=== PATIENT | female | born 1945 | race Caucasian/White ===

== ENCOUNTER 2016-12-09 10:08 | Day surgery (SDC) | payer MEDICARE, OTHER ==
[2016-12-07 12:54] LABS: T PROTEIN (ELECT)(NOT OR 7.1 G/DL (6.0-8.5)
[2016-12-07 13:03] LABS: C-REACTIVE PROTEIN 13.2 MG/L (<8.0); FREE T4 1.62 NG/DL (0.76-1.46)
[2016-12-07 13:04] LABS: IMMUNOGLOBULIN A 695 MG/DL (70-420); IMMUNOGLOBULIN G 1420 MG/DL (673-1464); IMMUNOGLOBULIN M 103 MG/DL (30-270); ULTRASENSITIVE TSH 2.04 MCIU/ML (0.358-3.740)
[2016-12-07 13:06] LABS: INTACT PTH (ICMA) 57.7 PG/ML (10.0-65.0)
[2016-12-08 11:35] LABS: A/G 0.77 RATIO (0.9-2.10); ALB RELATIVE % 43.4 % (60.0-89.0); ALBUMIN (ELECTRO) 3.08 GM/DL (3.2-5.5); ALPHA 1 (ELECTRO) 0.34 GM/DL (0.1-0.4); ALPHA 1 RELAT % (NOT ORD) 4.8 % (1.0-4.0); ALPHA 2 (ELECTRO) 1.04 GM/DL (0.5-1.10); ALPHA 2 RELAT % 14.6 % (4.5-26.0); BETA GLOBULIN (SPE) 0.96 GM/DL (0.60-1.30); BETA RELATIVE % 13.5 % (9.0-22.0); GAMMA GLOBULIN (SPE) 1.68 G/DL (0.70-1.60); GAMMA RELAT % 23.7 % (6.0-22.0)
--- NOTE | ~2016-12-09 | OP ---
Record Of Operation [facility] [address] [place]. [address] NAME: PRAVEEN BONDS : 43 STATUS : [facility]#: [id number] AGE: 71 ADM/REG DATE : 12/09/16 MR#: [id number] REPORT SERV DATE: 12/12/16 DICTATED BY: DARWIN GOODMAN DATE: 12/09/16 REPORT STATUS : Draft TRANSCRIBED BY: MODMayda DATE: 12/09/16 DATE OF PROCEDURE: 12/09/2016 PROCEDURES: L4 kyphoplasty. DIAGNOSES: 1. Osteoporosis. 2. Osteoporotic compression fracture of L4. 3. Severe lumbalgia, recalcitrant to conservative management. ANESTHESIA: General. PREPROCEDURAL ANTIBIOTICS: 2 g of Ancef IV. INTERIM HISTORY: Noncontributory, except for the fact that she did have a low potassium on pre-testing at 2.8. I prescribed some potassium for her and her recheck level today was 3.8. COMPLICATIONS: None. ESTIMATED BLOOD LOSS: Less than 10 mL. CONSENT: Informed consent was given and signed informed consent and document was obtained. Full description of procedures provided including benefits as well as possible complications including increased pain, spinal cord injury, spinal nerve injury, dural puncture with spinal headache, bleeding, infection, chest pain, pneumothorax, further fractures, meningitis, diskitis, spinal hematoma, leakage of cement, need for further procedures, allergic reaction, and failure of the procedure to relieve pain, and complications from anesthesia including blood clots, stroke, coma, paralysis, and . OPERATIVE PROCEDURE: The patient brought to the operating room, placed on the exam table on chest rolls in a comfortable prone position. The operative field was prepped with Hibiclens, followed by ChloraPrep, and Ioban, and draped in sterile fashion. Local anesthesia both superficial and deep was provided by local infiltration of a total of approximately 13 mL of 50:50 mixture of 1% lidocaine and 0.5% Marcaine with epinephrine. Two C-arms were used throughout the procedure in biplanar fashion and radiographs were made. The x-rays were compared to the patient's previous MRI and x-rays, and this revealed that the L4 was the correct level and this matched with the patient's fluoroscopy. Attention was focused on the L4 level. Using a 15 blade scalpel, a small skin rent was made just lateral to the right pedicle under AP view. The size 2 (10-gauge) Express trocar was then mounted through the right pedicle just past the posterior margin of the vertebral body using multiple radiographic views under AP and lateral projections. The Kyphon biopsy device was then cored under continuous live fluoroscopy until reaching the junction of the anterior 1/3rd and posterior 2/3rd of the vertebral body under lateral projection. The biopsy device was near the midline on the AP view. The same procedure was then repeated on the left side. Record Of Operation [facility] [address] [facility]. [address] NAME: PRAVEEN BONDS : 43 STATUS : [facility] PAT#: [id number] AGE: 71 ADM/REG DATE : 12/09/16 MR#: [id number] REPORT SERV DATE: 12/12/16 DICTATED BY: DARWIN GOODMAN DATE: 12/09/16 REPORT STATUS : Draft TRANSCRIBED BY: MODMayda DATE: 12/09/16 Two Kyphon balloon devices were then placed through the introducers and inflatable bone tamps were filled with contrast to a pressure of approximately 390 psi and radiographs revealed only a small amount of bone cavity formation on AP and lateral projections. The balloon tamps were then deflated and removed and a total of 4 mL of polymethylmethacrylate(PMMA) was pushed through the introducers after being mixed and given time to harden. The patient tolerated this well and radiographs revealed excellent intraosseous vertebral spread at L4 level without any evidence of extravasation except for a small amount of cement herniation through the superior endplate. There was excellent interdigitation. All needles, introducers, and other percutaneous equipment were removed. The skin nicks were then cleansed and dressed. The patient tolerated the procedure well and there were no complications. She was taken to the recovery area in good condition, and will be provided with postprocedural instructions. She will also be provided with contact information and instructed to call regarding any concerning symptoms or questions. IMPRESSION: Successful kyphoplasty of L4 level with details as noted above. LSR/ESTUARDOL Darwin Goodman M.D. / [id number] CC: Cesia Jc D.O.
[~2016-12-09 10:08] MED LIST: *UNABLE1; ARICEPT10 PO; ASAB PO; CURCUMIN PO; CYMBALTA60 PO; DEPLIN PO; FISH OIL1200 MG PO; GLUCPH PO; IMDUR30 PO; LEVOTHYROXIN100 MCG PO; LEVOTHYROXIN137 MCG PO; LOP50 PO; METADATE CD10 MG PO; METAMUCIL CAN7 OZ PO; NEUR600 PO; NORCO1 TA1 PO; RANEXA1000 MG PO; REM15 PO; REMERON30 MG; REMERON30 MG PO; RENEXA PO; REQUIP25 PO; VITAMIN D400 UNI1 PO; ZOCOR10 PO; ZOL100 PO; [UNRECOGNIZED DRUG - CODE] PO; [UNRECOGNIZED DRUG - OTHER]
[2016-12-20] MEDS ORDERED: WELCHOL 625 MG625 MG PO (18:53)
[2016-12-20] MEDS ORDERED: ZOCOR10 PO (18:54)
[2016-12-20] MEDS ORDERED: LOP50 PO (18:54)
[2016-12-20] MEDS ORDERED: IMDUR30 PO (18:54)
[2016-12-20] MEDS ORDERED: ZOFRAN8 PO (18:54)
[2016-12-20] MEDS ORDERED: FLORASTOR250 MG PO (18:55)
[2016-12-20] MEDS ORDERED: RANEXA1000 MG PO (18:55)
[2016-12-20] MEDS ORDERED: GLUMETZA500 MG PO (18:55)
[2016-12-20] MEDS ORDERED: REMERON30 MG PO (18:56)
[2016-12-20] MEDS ORDERED: IMOD PO (18:56)
[2016-12-20] MEDS ORDERED: NEUR600 PO (18:56)
[2016-12-20] MEDS ORDERED: ARICEPT10 PO (18:56)
[2016-12-20] MEDS ORDERED: METADATE CD10 MG PO (18:56)
[2016-12-20] MEDS ORDERED: ZOL100 PO (18:57)
[2016-12-20] MEDS ORDERED: SYNTHROID300 MCG PO (18:57)
[2016-12-20] MEDS ORDERED: DEPLIN PO (18:58)
[2016-12-20] MEDS ORDERED: HALF81 PO (18:59)
[2016-12-28] MEDS ORDERED: LEVAQUIN5T PO (11:59)
[2017-01-17] MEDS ORDERED: NORCO1 TA1 PO (15:38)
== END 2016-12-09 16:37 | disposition home or self-care (01) ==
LOC: SDC 10:08
PROVIDERS: Emergency Medicine Sports Medicine
PROC: 0QU03JZ Supplement Lumbar Vertebra with Synthetic Substitute, Percutaneous Approach (ICD-10-PCS; 2016-12-09)
PROC: 0QS03ZZ Reposition Lumbar Vertebra, Percutaneous Approach (ICD-10-PCS; principal; 2016-12-09 11:45)
DX: M80.88XA Other osteoporosis with current pathological fracture, vertebra(e), initial encounter for fracture (principal); I25.10 Atherosclerotic heart disease of native coronary artery without angina pectoris; Z95.1 Presence of aortocoronary bypass graft; I10 Essential (primary) hypertension; E78.00 Pure hypercholesterolemia, unspecified; E03.9 Hypothyroidism, unspecified; E11.9 Type 2 diabetes mellitus without complications; F41.9 Anxiety disorder, unspecified; F32.9 Major depressive disorder, single episode, unspecified; Z88.5 Allergy status to narcotic agent; Z88.8 Allergy status to other drugs, medicaments and biological substances; G89.29 Other chronic pain; Z79.02 Long term (current) use of antithrombotics/antiplatelets; Z79.84 Long term (current) use of oral hypoglycemic drugs; Z79.899 Other long term (current) drug therapy; Z96.1 Presence of intraocular lens; Z87.891 Personal history of nicotine dependence; Z90.49 Acquired absence of other specified parts of digestive tract; Z90.710 Acquired absence of both cervix and uterus; Z98.890 Other specified postprocedural states
CPT/HCPCS: 82306; 82330; 82784; 82962; 83970; 84132; 84155; 84165; 84439; 84443; 84479; 85652; 86140; 86334; 88307; 88311; 93005; C1726; J0690; J2250; J2370; J2405; J2710; J3010; Q9967

== ENCOUNTER 2017-01-23 05:55 | Inpatient (IN) | payer MEDICARE ==
[2017-01-18 12:28] LABS: BASOPHILS 0.1 %; BASOPHILS ABSOLUTE 0.01 10/3/uL (0.0-0.16); EOSINOPHILS 1.2 %; EOSINOPHILS ABSOLUTE 0.11 10/3/uL (0.0-0.53); HEMOGLOBIN 12.6 g/dL (12.0-16.0); IMMATURE GRANULOCYTES 0.4 %; IMMATURE GRANULOCYTES ABSOLUTE 0.04 10/3/uL (0.0-0.11); LYMPHOCYTES 25.5 %; LYMPHOCYTES ABSOLUTE 2.38 10/3/uL (0.67-4.30); MEAN CORPUS HGB CONC 32.3 g/dL (32.0-36.0); MEAN CORPUSCULAR HEMOGLOB 31.8 pg (26.0-34.0); MEAN CORPUSCULAR VOLUME 98.5 fL (80-100); MEAN PLATELET VOLUME 9.6 fL (9.2-13.0); MONOCYTES 6.2 %; MONOCYTES ABSOLUTE 0.58 10/3/uL (0.21-1.20); NEUTROPHILS 66.6 %; NEUTROPHILS ABSOLUTE 6.23 10/3/uL (2.02-8.40); PLATELET COUNT 307 10/3/uL (150-400); RBC DISTRIBUTION WIDTH 13.9 % (12.0-16.0); RED CELL COUNT 3.96 10/6/uL (4.0-5.6); WHITE BLOOD CELLS 9.4 10/3/uL (4.5-10.5)
[2017-01-18 12:29] LABS: MANUAL DIFF NO %
[2017-01-18 12:55] LABS: ALKALINE PHOSPHATASE 63 U/L (45-117); CHLORIDE, SERUM 104 MMOL/L (96-112); CO2 (CARBON DIOXIDE) 26 MMOL/L (24-34); CREATININE 0.76 MG/DL (0.55-1.02); GFR AFRICAN AMERICAN 91 ML/MIN (>=60); GFR NON AFRICAN AMERICAN 78 ML/MIN (>=60); GLUCOSE, SERUM 110 MG/DL (60-99); POTASSIUM, SERUM 4.5 MMOL/L (3.5-5.3); SGOT(AST) 21 U/L (5-40); SGPT(ALT) 15 U/L (5-65); SODIUM, SERUM 141 MMOL/L (135-148); TOTAL BILIRUBIN 0.4 MG/DL (0-1.2)
[2017-01-18 12:56] LABS: A/G RATIO 0.5 (0.7-1.9); ALBUMIN 2.7 G/DL (3.5-5.0); BUN (BLOOD UREA NITROGEN) 15 MG/DL (6-23); CALCIUM, SERUM 9.5 MG/DL (8.5-10.4); GLOBULIN 5.8 G/DL (2.5-4.1); TOTAL PROTEIN 8.5 G/DL (6.0-8.5)
--- NOTE | ~2017-01-23 | OP ---
Record Of Operation [facility] [address] [place]. [address] NAME: PRAVEEN ESQUIVEL : 43 STATUS : ADM IN PAT#: [id number] AGE: 71 ADM/REG DATE : 01/23/17 MR#: [id number] REPORT SERV DATE: 01/23/17 DICTATED BY: NASIR OCAMPO DATE: 01/23/17 REPORT STATUS : Draft TRANSCRIBED BY: MODL DATE: 01/23/17 DATE OF PROCEDURE: 01/23/2017 PREOPERATIVE DIAGNOSIS: Colovesicular fistula. POSTOPERATIVE DIAGNOSIS: Colovesicular fistula. OPERATIONS PERFORMED: 1. Exploratory laparotomy with takedown of colovesicular fistula. 2. Mike procedure. SURGEON: Nasir Ocampo M.D. ANESTHESIA: General. ESTIMATED BLOOD LOSS: Less than 50 mL. IV FLUIDS: Adequate. INDICATIONS FOR PROCEDURE: Ms. Esquivel is a 71-year-old white female, who has had a colovesicular fistula. When we originally saw her, she was nutritionally depleted. Her nutrition has improved and she is overall improved. She is being brought to the operating room today for takedown of her symptomatic colovesicular fistula. DESCRIPTION OF OPERATION: After appropriate sedation, the patient was prepped and draped in appropriate sterile fashion. A lower midline incision was performed. Subcutaneous tissues were incised down through the fascia and then into the peritoneum. She had some omental attachments to the abdominal wall, which were taken down. She tolerated. We then retracted the small bowel. There were some adhesions to the small bowel that were taken down sharply. These were not intimately involved with the fistula. The bowel was then tacked up in the upper abdomen, and a Bookwalter retractor was then placed. The sigmoid colon was very densely adhered to the pelvis. The mesentery was foreshortened. It was tightly adhered to the bladder. We mobilized the colon using finger fracture dissection as well as cautery and sharp dissection. This was extremely difficult as the entire pelvis was very fibrotic. We were able to finally mobilize the proximal sigmoid colon and transected it using a 75 ANGEL stapler. The mesentery was incised on both sides. We then took down the mesentery using a LigaSure device. We then fully mobilized the colon away from the bladder itself. We were not able to visualize the ureters; however, we were felt to be well medial. We then got down to the proximal rectum. Mesentery was still thickened; however, the rectum itself was relatively soft. Once this mesentery was taken down, we then transected the rectum using a contour device. A suture was placed on the distal and the specimen was then passed off. We then copiously irrigated out the pelvis. There was no evidence of bleeding. Staple line along the rectum was intact. We evaluated the bladder. There was no obvious opening. The bladder was instilled with 250 mL of methylene blue colored saline. There was no evidence of leakage. We then desufflated the bladder. We mobilized the proximal colon up to where it would come up against the abdominal wall. We decided for a colostomy due to the Record Of Operation [address] [address] NAME: PRAVEEN ESQUIVEL : 43 STATUS : ADM IN [facility]#: [id number] AGE: 71 ADM/REG DATE : 01/23/17 MR#: [id number] REPORT SERV DATE: 01/23/17 DICTATED BY: NASIR OCAMPO DATE: 01/23/17 REPORT STATUS : Draft TRANSCRIBED BY: SHEILA DATE: 01/23/17 patient's poor nutrition and intense inflammation. It should also be noted there was a pericolonic abscess. A circular area of skin in the lateral abdominal wall was taken up using a cautery. We incised down with cruciate incisions through the anterior and posterior rectus fascia. The colon was then delivered through the wound. The omentum was then draped over the abdomen and down to the pelvis. The fascia was closed using a running #1 looped PDS suture. The wound was irrigated. The skin was closed using interrupted 3-0 Vicryl sutures. We then also placed janet. The wound was then covered. The ostomy was matured by excising the staple line and using 3-0 Vicryl sutures. It was pink and abutted. Ostomy appliance was then placed. The patient was taken to the recovery room in satisfactory condition. DANIELLE/SHEILA Nasir Ocampo M.D. / [id number] CC: Nasir Ocampo M.D.
--- NOTE | ~2017-01-23 | CN ---
Consultation Report [facility] [address] [place]. [address] NAME: PRAVEEN BONDS : 43 STATUS : ADM IN PAT#: [id number] AGE: 71 ADM/REG DATE : 01/23/17 MR#: [id number] REPORT SERV DATE: 01/23/17 DICTATED BY: JODI DEVINE DATE: 01/23/17 REPORT STATUS : Draft TRANSCRIBED BY: MODL DATE: 01/23/17 CONSULTATION DATE OF CONSULTATION: 01/23/2017 HISTORY OF PRESENT ILLNESS: This is a 71-year-old patient of Dr. Ocampo's, who developed a known colovesical fistula secondary to diverticulitis, and is status post repair today. So, the patient underwent open sigmoidectomy and colostomy by Dr. Ocampo and cystoscopy and bilateral ureteral catheterization by Dr. Andrew Koo. She is currently here in the MICU for overnight observation since she has a significant cardiac history. She is currently off the vent and off pressors and is hemodynamically stable. So, we are asked to see her for medical management. ALLERGIES: THE PATIENT IS ALLERGIC TO STADOL, MORPHINE, AND TRAMADOL. HOME MEDICATIONS: Include enteric-coated aspirin, Welchol, Aricept, Neurontin, hydrocodone, Imdur, Synthroid, Imodium, metformin, Metadate, Lopressor, Remeron, Zofran, Ranexa, Florastor, Zoloft, Zocor, and Deplin. PAST MEDICAL HISTORY: Significant for: 1. Coronary artery disease, status post previous open heart surgery. 2. She had an arteriogram done in February 2015 that showed chronic occlusion of the mid LAD with severe 90% proximal D1 stenosis and subtotal occlusion of the MEAD to the LAD. Medical management was recommended. The patient is followed by Dr. Hartman. 3. Hyperlipidemia. 4. Hypertension. 5. Hypothyroidism. 6. Obesity. 7. Osteoarthritis. 8. History of moderate aortic stenosis. 9. Type 2 diabetes mellitus. 10.L4 kyphoplasty. 11.Abdominal hysterectomy, right. 12.Right total knee replacement. 13.Bilateral rotator cuff surgeries. SOCIAL HISTORY: Ex-cigarette smoker. Currently, has not smoked in years.. Alcohol, there is no history of any significant alcohol intake. The patient is . Lives with family. FAMILY HISTORY: Significant for her mother who is , had a history of a gynecologic cancer. Father's history is unknown. There is also a sibling with gynecologic cancer. REVIEW OF SYSTEMS: Consultation Report [facility] [id number] [place]. [address] NAME: PRAVEEN BONDS : 43 STATUS : ADM IN PAT#: [id number] AGE: 71 ADM/REG DATE : 01/23/17 MR#: [id number] REPORT SERV DATE: 01/23/17 DICTATED BY: JODI DEVINE DATE: 01/23/17 REPORT STATUS : Draft TRANSCRIBED BY: SHEILA DATE: 01/23/17 The patient currently is comfortable and a 10-point review of systems was done and is as per history of present illness. The patient denies any significant pain, shortness of breath, headache, or blurred vision. PHYSICAL EXAMINATION: VITAL SIGNS: The patient is extubated and is on 2 L saturating 99%. Her blood pressure is 135/78, heart rate is 83, respiratory rate is 12 to 14 breaths per minute. GENERAL: The patient appears somewhat pale. SKIN: Warm and dry. HEENT: The head is atraumatic and normocephalic. Pupils are sluggishly reactive. Sclerae anicteric. Conjunctivae pink. Nasal mucosa is within normal limits. Oral mucosa is moist. Tongue is midline. NECK: Supple without JVD, lymphadenopathy, or thyromegaly. The patient has a left subclavian central line, a right radial A-line. LUNGS: Diminished at the bases, right greater than left. No wheezing is heard. BREASTS: Symmetrical without masses. CARDIAC: Reveals a regular rate and rhythm with no significant murmurs. There are some ectopic beats periodically. ABDOMEN: Obese with a midline surgical incision with minimal drainage and then ostomy. Culp catheter is in place. RECTAL: Deferred. EXTREMITIES: Without cyanosis or clubbing. There is trace edema of the lower extremities. Pulses are palpable and symmetrical. NEUROLOGIC: Cranial nerves 2 through 12 are grossly intact. Motor and sensory are intact, and there are no focal findings on the physical exam. DIAGNOSTIC DATA: Chest x-ray shows elevation of the right hemidiaphragm and compared to previous chest x-rays. She has had an elevation of the right hemidiaphragm before. LABORATORY DATA: White cell count is 9.4, hemoglobin 12, hematocrit 39, and platelet count 307,000. Sodium 141, potassium 4.5, chloride 104, bicarb 26, BUN 15, creatinine 0.76, and glucose 110. LFTs are within normal limits. ASSESSMENT AND PLAN: This is a 71-year-old woman who was found to have a colovesical fistula, status post repair with ostomy formation and cystoscopy today, who is currently off the ventilator and is hemodynamically stable, but has a significant coronary history and is here for observation for any coronary issues that might arise as well as medical management. So, the plan will be to continue the IV fluids. The patient can be n.p.o. except for medications. We will place on a sliding insulin scale for control of blood sugars. The patient is already on deep venous thrombosis prophylaxis with heparin and has a GENERAL PARTNER Dilaudid for pain control. If the patient remained stable, she can be moved to the floor in the morning. We will follow the patient with you. Thank you for your consultation. Consultation Report [address] [place]. [address] NAME: PRAVEEN BONDS : 43 STATUS : ADM IN PAT#: [id number] AGE: 71 ADM/REG DATE : 01/23/17 MR#: [id number] REPORT SERV DATE: 01/23/17 DICTATED BY: JODI DEVINE DATE: 01/23/17 REPORT STATUS : Draft TRANSCRIBED BY: SHEILA DATE: 01/23/17 /SHEILA Jodi Devine M.D. / [id number] CC: Nasir Ocampo M.D.
--- NOTE | ~2017-01-23 | DS ---
Discharge Summary [facility] [address] [place]. [address] NAME: PRAVEEN ESQUIVEL : 43 STATUS : DIS IN PAT#: [id number] AGE: 71 ADM/REG DATE : 01/23/17 MR#: [id number] REPORT SERV DATE: 02/28/17 DICTATED BY: NASIR OCAMPO DATE: 02/27/17 REPORT STATUS : Draft TRANSCRIBED BY: MODL DATE: 02/27/17 ADMISSION DATE: 01/23/2017 DISCHARGE DATE: 01/31/2017 ADMISSION DIAGNOSIS: Colovesicular fistula. DISCHARGE DIAGNOSIS: Colovesicular fistula. PROCEDURES PERFORMED: 1. Low-anterior resection with colostomy. 2. Bilateral ureteral stent placement. 3. Cystoscopy by Dr. Koo. CONSULTATIONS: Dr. Devine. HISTORY OF PRESENT ILLNESS: Ms Esquivel is a 71-year-old, we previously seen while at [facility] with large colovesicular fistula. She was discharged in order to improve her medical status. She has significantly improved. She is brought to the operating room today for a low anterior resection with planned colostomy. HOSPITAL COURSE: The patient underwent cystoscopy as well as low-anterior resection with colostomy on 01/23/2017. She was placed into the Intensive Care Unit postoperatively due to her medical history. On postop day #1, she was doing well. Her central line and A-line were removed. She was okayed for transfer to the floor. On postop day #2, she still had no bowel function, but was hemodynamically stable. Her labs were stable. Postop day #3, she developed some nausea and vomiting, and was feeling somewhat better. Her ostomy started functioning. Postop day #5, she continued to improve. 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 She was having good bowel function. On postop day #5, she developed some nausea and vomiting. We placed her back at n.p.o. Her ostomy was still functioning. On postop day #7, she was feeling much better. Her labs were doing well. Her ostomy was functioning well, and the family had been given ostomy education. Blood sugars and hypertension were being well-controlled by the Hospitalist. By postop day #8, she was doing very well. She was given a little bit of Imodium to allow for decreased ostomy output. However, she continued to improve. She was discharged on postop day #8 with plans for home health care and an ostomy training. She was given pain medication to be discharged home with. She was continued on her home medications. She is to follow up with Dr. Ocampo in one week. DANIELLE/SHEILA Nasir Ocampo M.D. / [id number] Discharge Summary [address] [address] NAME: PRAVEEN ESQUIVEL : 43 STATUS : DIS IN [facility]#: [id number] AGE: 71 ADM/REG DATE : 01/23/17 MR#: [id number] REPORT SERV DATE: 02/28/17 DICTATED BY: NASIR OCAMPO DATE: 02/27/17 REPORT STATUS : Draft TRANSCRIBED BY: SHEILA DATE: 02/27/17 CC: Cesia Hickman D.O.
--- NOTE | ~2017-01-23 | OP ---
Record Of Operation [facility] [address] [place]. [address] NAME: PRAVEEN ESQUIVEL : 43 STATUS : ADM IN [facility]#: [id number] AGE: 71 ADM/REG DATE : 01/23/17 MR#: [id number] REPORT SERV DATE: 01/23/17 DICTATED BY: IAN WKAN DATE: 01/23/17 REPORT STATUS : Draft TRANSCRIBED BY: SHEILA DATE: 01/23/17 DATE OF PROCEDURE: 01/23/2017 PREOPERATIVE DIAGNOSIS: Colovesicular fistula. POSTOPERATIVE DIAGNOSIS: Colovesicular fistula. PROCEDURE PERFORMED: Cystoscopy with bilateral ureteral catheterization. ANESTHESIA: General. DRAINS: 1. Bilateral 5-Uruguayan open-ended ureteral catheters. 2. Culp catheter. INDICATION: Ms. Esquivel is a 71-year-old who presents with colovesicular fistula. She underwent cystoscopy with biopsy and retrograde pyelogram. There was an initial CT that showed mild left hydronephrosis. By the time of retrograde pyelogram, the hydronephrosis was largely resolved. She presents for sigmoid colectomy with Dr. Ocampo today and placing ureteral stents to help identify the ureters intraoperatively. TECHNIQUE: Informed consent was obtained. She received antibiotics per Dr. Ocampo. General endotracheal anesthesia was administered. The lower abdomen, introitus, perineum, and perirectal area were prepped and draped in the low lithotomy position. Rigid cystoscopy was performed. There was copious mucoid debris in the bladder. The posterior wall of the bladder was markedly edematous and erythematous. The fistula site was not clearly visualized. The right and left ureteral orifices were orthotopic and then appeared normal. Pollack catheter was advanced on the left to 25 cm. There was no hydronephrotic drip. Pollack catheter was advanced on the right to 25 cm. There was no hydronephrotic drip. I left the catheters in place, removed the cystoscope, and placed a 16-Uruguayan Culp catheter. The stents were secured to the Culp bag with the connectors. Both can be removed at the end of the sigmoid colectomy today so long as there was no suspicion for ureteral injury. VIET/SHEILA Ian Kwan M.D. / [id number] CC: Cesia Hickman D.O.
[~2017-01-23 05:55] MED LIST changes: +FLORASTOR250 MG PO; +GLUMETZA500 MG PO; +HALF81 PO; +IMOD PO; +LEVAQUIN5T PO; +SYNTHROID300 MCG PO; +WELCHOL 625 MG625 MG PO; +ZOFRAN8 PO
[2017-01-24 03:56] LABS: BASOPHILS 0.1 %; BASOPHILS ABSOLUTE 0.01 10/3/uL (0.0-0.16); EOSINOPHILS 0 %; HEMATOCRIT 32.9 % (36.0-48.0); HEMOGLOBIN 10.6 g/dL (12.0-16.0); IMMATURE GRANULOCYTES 0.3 %; IMMATURE GRANULOCYTES ABSOLUTE 0.05 10/3/uL (0.0-0.11); LYMPHOCYTES 13.2 %; MANUAL DIFF NO %; MEAN CORPUS HGB CONC 32.2 g/dL (32.0-36.0); MEAN CORPUSCULAR HEMOGLOB 31.5 pg (26.0-34.0); MEAN CORPUSCULAR VOLUME 97.9 fL (80-100); MONOCYTES ABSOLUTE 1.28 10/3/uL (0.21-1.20); NEUTROPHILS 78.4 %; NEUTROPHILS ABSOLUTE 12.52 10/3/uL (2.02-8.40); PLATELET COUNT 271 10/3/uL (150-400); RBC DISTRIBUTION WIDTH 14.3 % (12.0-16.0); RED CELL COUNT 3.36 10/6/uL (4.0-5.6)
[2017-01-24 04:08] LABS: BUN (BLOOD UREA NITROGEN) 10 MG/DL (6-23); CALCIUM, SERUM 8.5 MG/DL (8.5-10.4); CHLORIDE, SERUM 103 MMOL/L (96-112); CO2 (CARBON DIOXIDE) 26 MMOL/L (24-34); CREATININE 0.73 MG/DL (0.55-1.02); GFR AFRICAN AMERICAN 95 ML/MIN (>=60); GFR NON AFRICAN AMERICAN 82 ML/MIN (>=60); GLUCOSE, SERUM 145 MG/DL (60-99); PHOSPHORUS, SERUM 3.9 MG/DL (2.5-4.5); POTASSIUM, SERUM 4.4 MMOL/L (3.5-5.3); SODIUM, SERUM 139 MMOL/L (135-148)
[2017-01-25 05:34] LABS: BASOPHILS 0.1 %; BASOPHILS ABSOLUTE 0.02 10/3/uL (0.0-0.16); EOSINOPHILS 0.5 %; EOSINOPHILS ABSOLUTE 0.09 10/3/uL (0.0-0.53); HEMATOCRIT 33.7 % (36.0-48.0); HEMOGLOBIN 10.7 g/dL (12.0-16.0); IMMATURE GRANULOCYTES 0.5 %; IMMATURE GRANULOCYTES ABSOLUTE 0.08 10/3/uL (0.0-0.11); LYMPHOCYTES 11.6 %; LYMPHOCYTES ABSOLUTE 2.02 10/3/uL (0.67-4.30); MEAN CORPUS HGB CONC 31.8 g/dL (32.0-36.0); MEAN CORPUSCULAR HEMOGLOB 31.3 pg (26.0-34.0); MEAN CORPUSCULAR VOLUME 98.5 fL (80-100); MEAN PLATELET VOLUME 9.7 fL (9.2-13.0); MONOCYTES 7.1 %; MONOCYTES ABSOLUTE 1.24 10/3/uL (0.21-1.20); NEUTROPHILS 80.2 %; PLATELET COUNT 304 10/3/uL (150-400); RBC DISTRIBUTION WIDTH 14.4 % (12.0-16.0); RED CELL COUNT 3.42 10/6/uL (4.0-5.6); WHITE BLOOD CELLS 17.5 10/3/uL (4.5-10.5)
[2017-01-25 05:36] LABS: MANUAL DIFF NO %
[2017-01-25 05:55] LABS: BUN (BLOOD UREA NITROGEN) 10 MG/DL (6-23); CALCIUM, SERUM 8.9 MG/DL (8.5-10.4); CHLORIDE, SERUM 102 MMOL/L (96-112); CO2 (CARBON DIOXIDE) 26 MMOL/L (24-34); CREATININE 0.58 MG/DL (0.55-1.02); GFR AFRICAN AMERICAN 107 ML/MIN (>=60); GFR NON AFRICAN AMERICAN 92 ML/MIN (>=60); GLUCOSE, SERUM 153 MG/DL (60-99); POTASSIUM, SERUM 4.3 MMOL/L (3.5-5.3); SODIUM, SERUM 136 MMOL/L (135-148)
[2017-01-26 06:56] LABS: BASOPHILS 0.1 %; BASOPHILS ABSOLUTE 0.01 10/3/uL (0.0-0.16); EOSINOPHILS 0.2 %; EOSINOPHILS ABSOLUTE 0.03 10/3/uL (0.0-0.53); HEMATOCRIT 31.3 % (36.0-48.0); HEMOGLOBIN 9.8 g/dL (12.0-16.0); IMMATURE GRANULOCYTES 0.5 %; IMMATURE GRANULOCYTES ABSOLUTE 0.07 10/3/uL (0.0-0.11); LYMPHOCYTES 10.6 %; LYMPHOCYTES ABSOLUTE 1.62 10/3/uL (0.67-4.30); MEAN CORPUS HGB CONC 31.3 g/dL (32.0-36.0); MEAN CORPUSCULAR HEMOGLOB 30.6 pg (26.0-34.0); MEAN CORPUSCULAR VOLUME 97.8 fL (80-100); MEAN PLATELET VOLUME 9.5 fL (9.2-13.0); MONOCYTES 4.9 %; MONOCYTES ABSOLUTE 0.75 10/3/uL (0.21-1.20); NEUTROPHILS 83.7 %; NEUTROPHILS ABSOLUTE 12.74 10/3/uL (2.02-8.40); PLATELET COUNT 284 10/3/uL (150-400); RBC DISTRIBUTION WIDTH 14.5 % (12.0-16.0); WHITE BLOOD CELLS 15.2 10/3/uL (4.5-10.5)
[2017-01-26 06:58] LABS: MANUAL DIFF NO %
[2017-01-26 07:09] LABS: CALCIUM, SERUM 8.6 MG/DL (8.5-10.4); CHLORIDE, SERUM 103 MMOL/L (96-112); CO2 (CARBON DIOXIDE) 28 MMOL/L (24-34); GFR AFRICAN AMERICAN 112 ML/MIN (>=60); GFR NON AFRICAN AMERICAN 97 ML/MIN (>=60); GLUCOSE, SERUM 147 MG/DL (60-99); POTASSIUM, SERUM 4.4 MMOL/L (3.5-5.3); SODIUM, SERUM 139 MMOL/L (135-148)
[2017-01-26 07:10] LABS: BUN (BLOOD UREA NITROGEN) 18 MG/DL (6-23)
[2017-01-27 05:10] LABS: BUN (BLOOD UREA NITROGEN) 15 MG/DL (6-23); CHLORIDE, SERUM 106 MMOL/L (96-112); CO2 (CARBON DIOXIDE) 25 MMOL/L (24-34); CREATININE 0.46 MG/DL (0.55-1.02); GFR AFRICAN AMERICAN 115 ML/MIN (>=60); GFR NON AFRICAN AMERICAN 99 ML/MIN (>=60); SODIUM, SERUM 141 MMOL/L (135-148)
[2017-01-27 05:12] LABS: BASOPHILS 0.2 %; BASOPHILS ABSOLUTE 0.02 10/3/uL (0.0-0.16); EOSINOPHILS 1.9 %; HEMATOCRIT 28.4 % (36.0-48.0); HEMOGLOBIN 9.3 g/dL (12.0-16.0); IMMATURE GRANULOCYTES 0.4 %; IMMATURE GRANULOCYTES ABSOLUTE 0.04 10/3/uL (0.0-0.11); LYMPHOCYTES 19.8 %; LYMPHOCYTES ABSOLUTE 2.06 10/3/uL (0.67-4.30); MEAN CORPUS HGB CONC 32.7 g/dL (32.0-36.0); MEAN CORPUSCULAR VOLUME 97.6 fL (80-100); MEAN PLATELET VOLUME 9.7 fL (9.2-13.0); MONOCYTES 6.7 %; NEUTROPHILS ABSOLUTE 7.39 10/3/uL (2.02-8.40); PLATELET COUNT 268 10/3/uL (150-400); RBC DISTRIBUTION WIDTH 14.5 % (12.0-16.0); RED CELL COUNT 2.91 10/6/uL (4.0-5.6); WHITE BLOOD CELLS 10.4 10/3/uL (4.5-10.5)
[2017-01-27 05:16] LABS: MANUAL DIFF NO %
[2017-01-27 05:17] LABS: GLUCOSE, SERUM 81 MG/DL (60-99); POTASSIUM, SERUM 3.5 MMOL/L (3.5-5.3)
[2017-01-28 10:44] LABS: HEMATOCRIT 31.2 % (36.0-48.0); HEMOGLOBIN 10.3 g/dL (12.0-16.0); MEAN CORPUSCULAR HEMOGLOB 31.2 pg (26.0-34.0); MEAN PLATELET VOLUME 9.5 fL (9.2-13.0); PLATELET COUNT 296 10/3/uL (150-400); WHITE BLOOD CELLS 10.4 10/3/uL (4.5-10.5)
[2017-01-28 10:45] LABS: MANUAL DIFF YES %; MEAN CORPUSCULAR VOLUME 94.5 fL (80-100)
[2017-01-28 11:24] LABS: LYMPHOCYTES 15 %; LYMPHOCYTES ABSOLUTE (CALC) 1.56 10/3/uL (0.67-4.30); MONOCYTES 5 %; MONOCYTES ABSOLUTE (CALC) 0.52 10/3/uL (0.21-1.20); NEUTROPHILS ABSOLUTE (CALC) 8.32 10/3/uL (2.02-8.40); PLATELET ESTIMATE ADQ (ADEQUATE); RBC MORPHOLOGY NORM (NORMAL); SEGMENTED NEUTROPHIL (0) 80 %; TOTAL NUCLEATED CELLS 100
[2017-01-29 07:08] LABS: BUN (BLOOD UREA NITROGEN) 6 MG/DL (6-23); CALCIUM, SERUM 8.1 MG/DL (8.5-10.4); CHLORIDE, SERUM 103 MMOL/L (96-112); CO2 (CARBON DIOXIDE) 27 MMOL/L (24-34); CREATININE 0.61 MG/DL (0.55-1.02); GFR AFRICAN AMERICAN 105 ML/MIN (>=60); GFR NON AFRICAN AMERICAN 91 ML/MIN (>=60); GLUCOSE, SERUM 83 MG/DL (60-99); PHOSPHORUS, SERUM 3.5 MG/DL (2.5-4.5); POTASSIUM, SERUM 3.2 MMOL/L (3.5-5.3); SODIUM, SERUM 141 MMOL/L (135-148)
[2017-01-30 09:31] LABS: BUN (BLOOD UREA NITROGEN) 4 MG/DL (6-23); CHLORIDE, SERUM 104 MMOL/L (96-112); CO2 (CARBON DIOXIDE) 25 MMOL/L (24-34); CREATININE 0.61 MG/DL (0.55-1.02); GFR AFRICAN AMERICAN 105 ML/MIN (>=60); GFR NON AFRICAN AMERICAN 91 ML/MIN (>=60); GLUCOSE, SERUM 119 MG/DL (60-99); POTASSIUM, SERUM 3.3 MMOL/L (3.5-5.3); SODIUM, SERUM 141 MMOL/L (135-148)
== END 2017-01-31 12:27 | disposition home health service (06) | DRG 330 ==
LOC: SDC/OF 05:55 → PACU 12:14 → MIC 15:28 → 5SO 01-24 12:15
PROVIDERS: Internal Medicine; Specialist; Surgery; Urology
PROC: 3E0T3CZ (ICD-10-PCS; 2017-01-23)
PROC: 0DBN0ZZ Excision of Sigmoid Colon, Open Approach (ICD-10-PCS; principal; 2017-01-23 08:30)
PROC: 0T9B80Z Drainage of Bladder with Drainage Device, Via Natural or Artificial Opening Endoscopic (ICD-10-PCS; 2017-01-23 08:30)
DX: K57.20 Diverticulitis of large intestine with perforation and abscess without bleeding (principal); N32.1 Vesicointestinal fistula; N13.39 Other hydronephrosis; E11.9 Type 2 diabetes mellitus without complications; E78.5 Hyperlipidemia, unspecified; I10 Essential (primary) hypertension; E03.9 Hypothyroidism, unspecified; E66.9 Obesity, unspecified; M19.90 Unspecified osteoarthritis, unspecified site; D11.9 Benign neoplasm of major salivary gland, unspecified; Z79.899 Other long term (current) drug therapy; Z79.82 Long term (current) use of aspirin; Z88.5 Allergy status to narcotic agent; Z88.8 Allergy status to other drugs, medicaments and biological substances
CPT/HCPCS: 71010; 80048; 80053; 82962; 83036; 83735; 84100; 84132; 85025; 87641; 88307; 93005; 97110-GP; 97116-GP; 97162-GP; A9270-GY; C1751; C1758; C1769; G8978-CL-GP; G8979-CJ-GP; J0360; J0690; J1170; J1200; J1956; J2250; J2370; J2405; J2550; J2710; J2765; J2795; J3010; P9045; Q9967

== ENCOUNTER 2017-02-09 19:43 | Emergency (ER) | payer MEDICARE ==
[2017-02-09 17:39] LABS: BASOPHILS 0.2 %; BASOPHILS ABSOLUTE 0.02 10/3/uL (0.0-0.16); EOSINOPHILS 2.3 %; EOSINOPHILS ABSOLUTE 0.21 10/3/uL (0.0-0.53); ER CBC TAT 0 Hrs 05 Mins; HEMOGLOBIN 12.2 g/dL (12.0-16.0); IMMATURE GRANULOCYTES 0.9 %; IMMATURE GRANULOCYTES ABSOLUTE 0.08 10/3/uL (0.0-0.11); LYMPHOCYTES 38.1 %; LYMPHOCYTES ABSOLUTE 3.43 10/3/uL (0.67-4.30); MEAN CORPUS HGB CONC 33.2 g/dL (32.0-36.0); MEAN CORPUSCULAR HEMOGLOB 31.7 pg (26.0-34.0); MEAN CORPUSCULAR VOLUME 95.6 fL (80-100); MEAN PLATELET VOLUME 9.4 fL (9.2-13.0); MONOCYTES ABSOLUTE 0.72 10/3/uL (0.21-1.20); NEUTROPHILS 50.5 %; NEUTROPHILS ABSOLUTE 4.55 10/3/uL (2.02-8.40); RBC DISTRIBUTION WIDTH 15.2 % (12.0-16.0); RED CELL COUNT 3.85 10/6/uL (4.0-5.6)
[2017-02-09 17:40] LABS: HEMATOCRIT 36.8 % (36.0-48.0); MANUAL DIFF NO %; PLATELET COUNT 385 10/3/uL (150-400)
[2017-02-09 17:55] LABS: A/G RATIO 0.7 (0.7-1.9); ALBUMIN 3.2 G/DL (3.5-5.0); ALKALINE PHOSPHATASE 59 U/L (45-117); BUN (BLOOD UREA NITROGEN) 15 MG/DL (6-23); CALCIUM, SERUM 8.8 MG/DL (8.5-10.4); CHLORIDE, SERUM 104 MMOL/L (96-112); CO2 (CARBON DIOXIDE) 20 MMOL/L (24-34); CREATININE 0.86 MG/DL (0.55-1.02); GFR AFRICAN AMERICAN 78 ML/MIN (>=60); GFR NON AFRICAN AMERICAN 67 ML/MIN (>=60); GLOBULIN 4.8 G/DL (2.5-4.1); GLUCOSE, SERUM 107 MG/DL (60-99); POTASSIUM, SERUM 3.8 MMOL/L (3.5-5.3); SGOT(AST) 42 U/L (5-40); SGPT(ALT) 26 U/L (5-65); SODIUM, SERUM 139 MMOL/L (135-148); TOTAL BILIRUBIN 0.5 MG/DL (0-1.2)
[2017-02-09 21:40] LABS: ASCORBIC ACID (UR NOT ORDER) 40 (NEG); BILIRUBIN, URINE NEGATIVE (NEG); ER URINALYSIS TAT 0 Hrs 27 Mins; KETONE, URINE NEGATIVE (NEG); LEUKOCYTE ESTERASE(NOT OR MOD (NEG); WBC (NOT ORDERED) (RFLEX) 65 (0-5)
[2017-02-09 21:41] LABS: NITRITE (URINE) NEG (NEG)
== END 2017-02-09 23:04 | disposition home or self-care (01) ==
LOC: ER 19:43
PROVIDERS: Emergency Medicine
DX: N39.0 Urinary tract infection, site not specified (principal); F41.9 Anxiety disorder, unspecified; I10 Essential (primary) hypertension; I25.10 Atherosclerotic heart disease of native coronary artery without angina pectoris; E11.9 Type 2 diabetes mellitus without complications; Z93.3 Colostomy status; Z95.1 Presence of aortocoronary bypass graft; Z87.891 Personal history of nicotine dependence; Z88.5 Allergy status to narcotic agent; Z88.8 Allergy status to other drugs, medicaments and biological substances; Z79.84 Long term (current) use of oral hypoglycemic drugs; Z79.82 Long term (current) use of aspirin; Z79.899 Other long term (current) drug therapy
CPT/HCPCS: 71020; 74176; 80053; 81001; 85025; 87040; 87086; 93005; 96374; 96375; 99285; C9113; J2405